=== PATIENT | male | born 1955 | race Two or more races ===

== ENCOUNTER 2016-10-20 08:14 | Observation (INO) | payer OTHER ==
[~2016-10-20] VITALS: Ht 177.8 cm; Wt 80.2 kg
[~2016-10-20 08:14] MED LIST: /SODI15SS PO; ALLO100T PO; B COCAP5 PO; CENTCHW3 PO; FURO20TA2 PO; LACT10SO15 PO; LACT20EL PO; MILK500C2 PO; NADO20TA2 PO; NEXI40GR PO; SPIR50TA2 PO
[2016-10-20] MEDS ORDERED: MYCO1TAB PO (08:31)
[2016-10-20] MEDS ORDERED: CALC1TAB30 PO (08:31)
[2016-10-20] MEDS ORDERED: ESCI10TA2 PO (08:31)
[2016-10-20] MEDS ORDERED: LOSA25TA8 PO (08:31)
[2016-10-20] MEDS ORDERED: AMLO5TAB2 PO (08:31)
[2016-10-20] MEDS ORDERED: [UNRECOGNIZED DRUG - CODE] PO (08:31)
[2016-10-20] MEDS ORDERED: PRAV20TA2 PO (08:31)
[2016-10-20] MEDS ORDERED: [UNRECOGNIZED DRUG - CODE] PO (08:31)
[2016-10-20] MEDS ORDERED: FERR325T3 PO (08:31)
[2016-10-20 10:24] LABS: BASO % 0.7 % (0.0-1.0); EOS % 0.6 % (0.0-3.0); LARGE UNSTAINED CELL # 0.1 K/mm3 (0.0-0.4); LARGE UNSTAINED CELL % 3.5 % (0.0-4.0); LYMPH # 0.5 K/mm3 (1.5-4.5); MEAN CORPUSCULAR HEMOGLOBIN 27.1 pg (27.0-33.0); MEAN CORPUSCULAR HGB CONC 34.9 g/dl (32.0-36.5); MEAN CORPUSCULAR VOLUME 77.6 fl (80.0-96.0); MONO # 0.5 K/mm3 (0.0-0.8); MONO % 11.8 % (0.0-5.0); NEUTROPHILS % 74.4 % (36.0-66.0); RED CELL DISTRIBUTION WIDTH 15.1 % (11.5-14.5)
[2016-10-20 10:28] LABS: INR 1.07
[2016-10-20 10:39] LABS: ALBUMIN 2.7 GM/DL (3.2-5.2); ALBUMIN/GLOBULIN RATIO 0.82 (1.00-1.93); ALKALINE PHOSPHATASE 62 U/L (45-117); ALT/SGPT 15 U/L (12-78); ANION GAP 7 MEQ/L (8-16); AST/SGOT 13 U/L (15-37); BILIRUBIN,DIRECT 0.1 MG/DL (0.0-0.2); BILIRUBIN,TOTAL 0.6 MG/DL (0.2-1.0); BLOOD UREA NITROGEN 30 MG/DL (7-18); CALCIUM LEVEL 8.1 MG/DL (8.8-10.2); CARBON DIOXIDE LEVEL 26 MEQ/L (21-32); CHLORIDE LEVEL 103 MEQ/L (98-107); CREATININE FOR GFR 1.76 MG/DL (0.70-1.30); GLOMERULAR FILTRATION RATE 42.3 (>49); GLUCOSE, FASTING 129 MG/DL (80-110); POTASSIUM SERUM 4.1 MEQ/L (3.5-5.1); SODIUM LEVEL 136 MEQ/L (136-145)
[2016-10-20] MEDS: NS 1,000 ML IV SCH ×2 (10:39→16:34)
[2016-10-20 11:05] LABS: PLATELET COUNT, AUTOMATED 96 k/mm3 (150-450)
--- NOTE | 2016-10-20 11:50 | REP ---
Clinical: Chest pain. Comparison: 01/24/2013. Findings: Elevation and blunting to the right diaphragmatic surface and costophrenic angle suggest small pleural effusion. Correlation is recommended. Remainder of the aerated lung michael are clear. No pneumothorax. Mediastinum and cardiac silhouette normal. Skeletal structures stable. Possible old infarction involving the proximal humerus. Impression: Possible right lower lobe atelectasis and small effusion. Signed by Kan Muro MD 10/20/2016 11:42 A
[2016-10-20] MEDS ORDERED: CIPROFLOXACIN 500 MG TAB PO ONE (15:00)
[2016-10-20] MEDS ORDERED: CALCTAB68 PO (15:01)
--- NOTE | 2016-10-20 16:29 | HPEPDOC ---
Medical History and Physical Date of Admission Oct 20, 2016 at 15:31 History and Physical Primary care provider: Dr. Esquivel in [place], [place] Date of Admission: 10/20/2016 Attending: Dr. Yuridia Linn CHIEF COMPLAINT: Intractable diarrhea HISTORY OF PRESENT ILLNESS: Mr. Costa is a 61-year-old male who presented to the emergency department with symptoms of watery diarrhea for 6 days duration, and profound fatigue. He believes that he may have had a subjective fever a few days ago, but denies chills or night sweats. It is important to note that he is status post liver transplant and is taking Evorolimus and mycophenolate, therefore he is immunosuppressed. The patient states that his symptoms began approximately . He believes that perhaps it occurred after he had done some work on a septic tank, he does not think that he had any contact with fecal material however. ALLERGIES: No known drug allergies PAST MEDICAL HISTORY: 1. Alcoholic liver cirrhosis, status post liver transplant in 2013, now on immunosuppressive agents 2. History of ascites and esophageal varices, however he has not had issues with either of these since his transplant 3. Gout, without recurrence for many years 4. Hypertension 5. Chronic anemia, also on iron supplementation PAST SURGICAL HISTORY: 1. Umbilical hernia repair 2. Liver transplant 2013 SOCIAL HISTORY: He has been sober since 2013. 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 He denies smoking or use of illicit drugs. He currently lives in [place], is only in [place] visiting FAMILY HISTORY: His father at the age of 86, he had prostate cancer, dementia, and Parkinson's disease. Mother has hypertension. Sr. had breast cancer REVIEW OF SYSTEMS: Constitutional: Patient admits to mild subjective fever a few days ago, denies chills, night sweats, recent weight gain/loss. He states that he is also been suffering from profound fatigue for the last 6 days. HEENT: Patient denies blurred or double vision, transient visual disturbances, postnasal drip, epistaxis, sore throat, difficulty chewing or swallowing food. He does however admit to a slightly decreased appetite, and he is not drinking as much as he did previously Cardiovascular: Patient denies chest discomfort/pain, palpitations, exertional dyspnea, orthopnea, edema of the extremities, claudication. Respiratory: Patient denies dyspnea, wheezing, cough, hemoptysis, sputum production. Gastrointestinal: He admits to intractable diarrhea, and has to go approximately every 1-1.5 hours for the past 6 days. Otherwise, he denies any nausea, vomiting, abdominal pain, constipation. PHYSICAL EXAMINATION: Vitals: Temperature 98.5, pulse 68 regular, respirations 18, blood pressure 127/ 84, pulse oximetry is 100% on room air General: Awake, alert, oriented 3. He is in no acute distress. He is an excellent historian. HEENT: Head normocephalic atraumatic, pupils equally reactive to light, buccal mucosa is somewhat dry with no lesions in the oropharynx. Hearing is grossly intact to conversation. Respiratory: Clear to auscultation bilaterally with no wheezes, rales, or rhonchi. Cardiovascular: Regular rate and rhythm, with no rubs, gallops, or murmur. Abdomen: Soft, nontender, obese, nondistended, no hepatosplenomegaly appreciated. Bowel sounds present. Extremities: 2+ pulses in the radial and dorsalis pedis bilaterally. No evidence of clubbing or cyanosis. Skin: Decreased turgor ASSESSMENT: 1. Intractable diarrhea secondary to Campylobacter infection in immunocompromised patient 2. History of liver transplant 3. Chronic kidney disease stage III, with a baseline creatinine of approximately 1.6-1.8 4. Dehydration 5. Hypertension 6. Chronic Anemia, likely anemia of chronic disease, although he is also on iron supplementation, therefore suspect that he also has decreased iron stores 7. DVT prophylaxis PLAN: Will admit the patient for observation. Will rehydrate with normal saline. Campylobacter has been confirmed with the use of a GI panel, therefore we will treat him with ciprofloxacin renally dosed. He did bring in records from home which indicates a BUN 29, creatinine 1.74 on 08/16/2016 and BUN 22, creatinine 1.83 on 03/20/2016, therefore he has chronic kidney disease. Otherwise, we'll continue the remainder of his home regimen for his chronic issues. My preceptor for this patient encounter was physically present in the building during the encounter and was fully available. As needed, all aspects of the patient interview, examination, medical decision making process, and medical care plan development were reviewed and approved by the preceptor. Preceptor is aware and concurs with the plan as stated in the body of this note and will attest to such by his/her cosignature. I have seen and examined the patient, and discussed the case with the resident. I agree with the following assessment mentioned above. Vital Signs Vital Signs Date Time Temp Pulse Resp B/P (MAP) Pulse Ox O2 Delivery O2 Flow Rate FiO2 10/20/16 14:14 68 18 100 Room Air 10/20/16 14:07 127/84 (98) 10/20/16 10:59 98.5 Laboratory Data Labs 24H Laboratory Tests 2 10/20/16 10:06: White Blood Count 4.0, Red Blood Count 3.83L, Hemoglobin 10.4L, Hematocrit 29.8L , Mean Corpuscular Volume 77.6L, Mean Corpuscular Hemoglobin 27.1, Mean Corpuscular Hemoglobin Concent 34.9, Red Cell Distribution Width 15.1H, Platelet Count 96L, Neutrophils (%) (Auto) 74.4H, Lymphocytes (%) (Auto) 9.0L, Monocytes (%) (Auto) 11.8H, Eosinophils (%) (Auto) 0.6, Basophils (%) (Auto) 0.7 , Neutrophils # (Auto) 3.0, Lymphocytes # (Auto) 0.5L, Monocytes # (Auto) 0.5, Eosinophils # (Auto) 0.0, Basophils # (Auto) 0.0, Large Unclassified Cells % 3.5 , Large Unclassified Cells # 0.1, Prothrombin Time 14.0, Prothromb Time International Ratio 1.07, Activated Partial Thromboplast Time 30.4, Anion Gap 7L , Glomerular Filtration Rate 42.3L, Calcium Level 8.1L, Aspartate Amino Transf ( AST/SGOT) 13L, Alanine Aminotransferase (ALT/SGPT) 15, Alkaline Phosphatase 62, Total Bilirubin 0.6, Direct Bilirubin 0.1, Total Creatine Kinase 37L, Creatine Kinase MB 1.0, Creatine Kinase MB Relative Index 2.70, Troponin I < 0.02, Total Protein 6.0L, Albumin 2.7L, Albumin/Globulin Ratio 0.82L, Lipase 226, Thyroid Stimulating Hormone (TSH) 0.939 10/20/16 10:13: Ammonia 28 10/20/16 10:14: Lactic Acid Level 0.8 CBC/BMP Laboratory Tests 10/20/16 10:06 Red Blood Count 3.83 L, Mean Corpuscular Volume 77.6 L, Mean Corpuscular Hemoglobin 27.1, Mean Corpuscular Hemoglobin Concent 34.9, Red Cell Distribution Width 15.1 H, Neutrophils (%) (Auto) 74.4 H, Lymphocytes (%) (Auto ) 9.0 L, Monocytes (%) (Auto) 11.8 H, Eosinophils (%) (Auto) 0.6, Basophils (%) (Auto) 0.7, Neutrophils # (Auto) 3.0, Lymphocytes # (Auto) 0.5 L, Monocytes # ( Auto) 0.5, Eosinophils # (Auto) 0.0, Basophils # (Auto) 0.0 Microbiology Microbiology 10/20/16 Blood Culture, Received Pending 10/20/16 Blood Culture, Received Pending 10/20/16 Gastrointestinal Tract Panel (PCR) - Final, Complete Campylobacter Home Medications Scheduled (Mycophenolic Acid Dr) 180 Mg Tab, 180 MG PO BID Amlodipine Besylate (Amlodipine Besylate) 5 Mg Tab, 5 MG PO DAILY Calcium/Vitamin D (Calcium 600 + D 600-400 mg-Unit) 1 Tab Tab, 1 TAB PO BID Escitalopram Oxalate (Escitalopram Oxalate) 10 Mg Tab, 10 MG PO QHS Everolimus (Zortress) 0.75 Mg Tab, 2.75 MG PO BID Ferrous Sulfate (Ferrous Sulfate) 325 Mg Tab, 325 MG PO DAILY Losartan Potassium (Losartan Potassium) 25 Mg Tab, 25 MG PO QHS Pravastatin Sodium (Pravastatin Sodium) 20 Mg Tab, 20 MG PO QHS Allergies Coded Allergies: No Known Allergies (Unverified , 01/20/13) NAHED MEDINA DO Oct 20, 2016 16:28 NEHAL LINN MD Oct 21, 2016 12:20
[2016-10-20] MEDS: CIPROFLOXACIN 400 MG in APPROPRIATE DILUENT 1 EA IV SCH (16:34)
[2016-10-20] MEDS: HEPARIN SOD (PORCINE) 5000 UNITS/ML VIAL SC SCH ×2 (16:38→22:33)
[2016-10-20 17:30] VITALS: BP 131/90
[2016-10-20 20:45] VITALS: BP 128/75
--- NOTE | 2016-10-20 20:56 | ECGEPIP ---
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
[2016-10-20] MEDS ORDERED: ESCITALOPRAM OXALATE 10 MG TAB (LEXAPRO) PO SCH (21:00)
[2016-10-20] MEDS ORDERED: LOSARTAN 25 MG TAB PO SCH (21:00)
[2016-10-20] MEDS: MYCOPHENOLIC ACID 180 MG PO SCH (21:00)
[2016-10-20] MEDS: EVEROLIMUS 0.75 MG PO SCH (21:00)
[2016-10-20] MEDS: CALCIUM/VITAMIN D 500 MG TAB PO SCH (21:00)
[2016-10-20] MEDS ORDERED: PRAVASTATIN 20 MG TAB PO SCH (21:00)
--- NOTE | 2016-10-20 22:11 | IPNPDOC ---
Subjective Date Seen The patient was seen on 10/20/16. Subjective Chief Complaint/HPI The patient is a 61-year-old male admitted with a reason for visit of Campylobacter Diarrhea. Assessment /Plan Plan/VTE VTE Prophylaxis Ordered?: Yes Plan CALLED AT 2200 BY NURSE- PT HAD TAKEN ALL OF HIS OWN HOME MEDS HE WAS APPARENTLY TOLD IN ED TO TAKE HIS OWN HOME MEDS. NURSE CONFIRMED PTS HOME MEDS THAT HE TOOK AND WHAT WAS SCHEDULED FOR PT IN HOUSE, DOSAGES AND MEDICATIONS MATCHED. MD/DO AWARE. PTS HOME MEDS ARE NOW IN PHARMACY. IN ADDITION PTS ZORTRESS IS ONLY ON FORMULARY FOR .70 MG, SUCH HE WILL RECEIVE 2.625 MG BID, INSTEAD OF HIS 2.7 MG BID.- CK VS, I&O, 24H, Fishbone Vital Signs/I&O Vital Signs Date Time Temp Pulse Resp B/P (MAP) Pulse Ox O2 Delivery O2 Flow Rate FiO2 10/20/16 17:30 98.4 80 18 131/90 (104) 100 Room Air Laboratory Data 24H LABS Laboratory Tests 2 10/20/16 10:06: White Blood Count 4.0, Red Blood Count 3.83L, Hemoglobin 10.4L, Hematocrit 29.8L , Mean Corpuscular Volume 77.6L, Mean Corpuscular Hemoglobin 27.1, Mean Corpuscular Hemoglobin Concent 34.9, Red Cell Distribution Width 15.1H, Platelet Count 96L, Neutrophils (%) (Auto) 74.4H, Lymphocytes (%) (Auto) 9.0L, Monocytes (%) (Auto) 11.8H, Eosinophils (%) (Auto) 0.6, Basophils (%) (Auto) 0.7 , Neutrophils # (Auto) 3.0, Lymphocytes # (Auto) 0.5L, Monocytes # (Auto) 0.5, Eosinophils # (Auto) 0.0, Basophils # (Auto) 0.0, Large Unclassified Cells % 3.5 , Large Unclassified Cells # 0.1, Prothrombin Time 14.0, Prothromb Time International Ratio 1.07, Activated Partial Thromboplast Time 30.4, Anion Gap 7L , Glomerular Filtration Rate 42.3L, Calcium Level 8.1L, Aspartate Amino Transf ( AST/SGOT) 13L, Alanine Aminotransferase (ALT/SGPT) 15, Alkaline Phosphatase 62, Total Bilirubin 0.6, Direct Bilirubin 0.1, Total Creatine Kinase 37L, Creatine Kinase MB 1.0, Creatine Kinase MB Relative Index 2.70, Troponin I < 0.02, Total Protein 6.0L, Albumin 2.7L, Albumin/Globulin Ratio 0.82L, Lipase 226, Thyroid Stimulating Hormone (TSH) 0.939 10/20/16 10:13: Ammonia 28 10/20/16 10:14: Lactic Acid Level 0.8 CBC/BMP Laboratory Tests 10/20/16 10:06 Red Blood Count 3.83 L, Mean Corpuscular Volume 77.6 L, Mean Corpuscular Hemoglobin 27.1, Mean Corpuscular Hemoglobin Concent 34.9, Red Cell Distribution Width 15.1 H, Neutrophils (%) (Auto) 74.4 H, Lymphocytes (%) (Auto ) 9.0 L, Monocytes (%) (Auto) 11.8 H, Eosinophils (%) (Auto) 0.6, Basophils (%) (Auto) 0.7, Neutrophils # (Auto) 3.0, Lymphocytes # (Auto) 0.5 L, Monocytes # ( Auto) 0.5, Eosinophils # (Auto) 0.0, Basophils # (Auto) 0.0 Microbiology Microbiology 10/20/16 Blood Culture, Received Pending 10/20/16 Blood Culture, Received Pending 10/20/16 Gastrointestinal Tract Panel (PCR) - Final, Complete Campylobacter JANET SPANGLER DO Oct 20, 2016 22:11
[2016-10-21] MEDS: NS 1,000 ML IV SCH (01:44)
[2016-10-21] MEDS ORDERED: CIPROFLOXACIN 400 MG in APPROPRIATE DILUENT 1 EA IV SCH (04:00)
[2016-10-21] MEDS: CIPROFLOXACIN 400 MG in APPROPRIATE DILUENT 1 EA IV SCH ×2 (04:11→15:47)
[2016-10-21] MEDS: HEPARIN SOD (PORCINE) 5000 UNITS/ML VIAL SC SCH (05:16)
[2016-10-21 06:00] VITALS: BP 117/74
[2016-10-21 08:25] VITALS: BP 117/74
[2016-10-21] MEDS: EVEROLIMUS 0.75 MG PO SCH (08:25)
[2016-10-21] MEDS: MYCOPHENOLIC ACID 180 MG PO SCH (08:25)
[2016-10-21] MEDS: CALCIUM/VITAMIN D 500 MG TAB PO SCH (08:25)
[2016-10-21 08:34] LABS: MEAN CORPUSCULAR HEMOGLOBIN 27.5 pg (27.0-33.0); MEAN CORPUSCULAR HGB CONC 35.1 g/dl (32.0-36.5); MEAN CORPUSCULAR VOLUME 78.5 fl (80.0-96.0); RED CELL DISTRIBUTION WIDTH 15.1 % (11.5-14.5); WHITE BLOOD COUNT 2.8 K/mm3 (4.0-10.0)
[2016-10-21 08:56] LABS: CALCIUM LEVEL 7.6 MG/DL (8.8-10.2); CREATININE FOR GFR 1.63 MG/DL (0.70-1.30); GLOMERULAR FILTRATION RATE 46.2 (>49); MAGNESIUM LEVEL 1.9 MG/DL (1.8-2.4); POTASSIUM SERUM 3.9 MEQ/L (3.5-5.1)
[2016-10-21] MEDS ORDERED: amLODIPine 5 MG TAB PO SCH (09:00)
[2016-10-21] MEDS ORDERED: FERROUS SULFATE 325MG TAB PO SCH (09:00)
[2016-10-21 14:00] VITALS: BP 114/70
[2016-10-21] MEDS ORDERED: CIPR-249 PO (14:17)
--- NOTE | 2016-10-21 23:24 | DS.PDOC ---
Discharge Summary General Date of Admission Oct 20, 2016 at 15:31 Date of Discharge 10/21/2016 Discharge Summary PRIMARY CARE PHYSICIAN: Dr. Esquivel in [place], [place] ATTENDING AT TIME OF DISCHARGE: Dr. Finnegan He DISCHARGE DIAGNOS(E)S: 1. Intractable diarrhea secondary to Campylobacter infection in immunocompromised patient 2. History of liver transplant 3. Chronic kidney disease stage III, with a baseline creatinine of approximately 1.6-1.8 4. Dehydration 5. Hypertension 6. Chronic Anemia, likely anemia of chronic disease, although he is also on iron supplementation, therefore suspect that he also has decreased iron stores HPI & HOSPITAL COURSE: Mr. Costa is a 61-year-old male who presented to the emergency department with watery diarrhea 6 days duration as well as profound fatigue. A GI panel was checked upon admission and he was found to be positive for Campylobacter. For the normal population Campylobacter would normally be a self -limiting disease, however this patient is immunosuppressed secondary to the medications he is taking for his liver transplant, and he is quite symptomatic, and therefore we felt that judicious to at least admit him for observation. He was started on ciprofloxacin twice a day, his stools went from about every 1- 1.5 hours to only having 2 bowel movements this morning, and he reports that they're no longer watery, they're still a little loose, but formed. He was found to be slightly dehydrated upon admission, therefore he was given some fluid repletion with normal saline. Also, concerning his fatigue, he was ambulating the hallways approximately every hour, and was feeling significantly better in this respect as well. Given the excellent response that he has shown ciprofloxacin, he will be transitioned over to an oral formulation and allowed to finish up his course at home. He appears stable for discharge. PHYSICAL EXAMINATION ON DISCHARGE: GENERAL: Awake, alert, oriented 3. He is in no acute distress. HEENT: Buccal mucosa is pink and moist with no lesions in the oropharynx. CARDIOVASCULAR EXAMINATION: Regular rate and rhythm, with no rubs, gallops, or murmur. RESPIRATORY EXAMINATION: Clear to auscultation bilaterally with no wheezes, rales, or rhonchi. ABDOMINAL EXAMINATION: Soft, nontender, nondistended. Bowel sounds present. EXTREMITIES: No clubbing or edema noted. 2+ pulses in the radial bilaterally. INTEGUMENT: No rashes or lesions. Skin turgor is improved. DISPOSITION: Home DISCHARGE INSTRUCTIONS: The patient is from [place], but I would recommend that he follow-up with a local provider. Their offices are currently closed as it is a weekend, therefore I recommend that we schedule an appointment with a local provider on Sunday within the following 7-10 days. Diet, as tolerated. Activity, as tolerated. Please be sure to take her antibiotics as prescribed until they're completely finished even if your symptoms are resolved prior to that time. If symptoms return, or if you experience worsening of your symptoms, please call your doctor or return to the emergency department. My preceptor for this patient encounter was physically present in the building during the encounter and was fully available. As needed, all aspects of the patient interview, examination, medical decision making process, and medical care plan development were reviewed and approved by the preceptor. Preceptor is aware and concurs with the plan as stated in the body of this note and will attest to such by his/her cosignature. Vital Signs/I&Os Vital Signs Date Time Temp Pulse Resp B/P (MAP) Pulse Ox O2 Delivery O2 Flow Rate FiO2 10/21/16 14:00 98.2 67 18 114/70 (85) 98 Room Air I&O- Last 24 Hours up to 6 AM 10/21/16 06:00 Intake Total 3000 ml Output Total 625 ml Balance 2375 ml Laboratory Data Labs 24H Laboratory Tests 2 10/21/16 08:23: Anion Gap 6L, Glomerular Filtration Rate 46.2L, Blood Urea Nitrogen 25H, Creatinine 1.63H, Sodium Level 137, Potassium Level 3.9, Chloride Level 107, Carbon Dioxide Level 24, Calcium Level 7.6L, Magnesium Level 1.9 10/21/16 12:02: Bedside Glucose (Misc Panel) 101 CBC/BMP Laboratory Tests 10/21/16 08:23 Red Blood Count 3.22 L, Mean Corpuscular Volume 78.5 L, Mean Corpuscular Hemoglobin 27.5, Mean Corpuscular Hemoglobin Concent 35.1, Red Cell Distribution Width 15.1 H, Calcium Level 7.6 L FSBS Laboratory Tests Test 10/21/16 12:02 Range/Units Bedside Glucose (Misc Panel) 101 80-115 MG/DL Microbiology Microbiology 10/20/16 Blood Culture - Preliminary, Resulted No growth after 24 hours . All specim... 7/7/17 Blood Culture - Preliminary, Resulted No growth after 24 hours . All specim... 10/20/16 Gastrointestinal Tract Panel (PCR) - Final, Complete Campylobacter Discharge Medications Scheduled (Mycophenolic Acid Dr) 180 Mg Tab, 180 MG PO BID, (Reported) Amlodipine Besylate (Amlodipine Besylate) 5 Mg Tab, 5 MG PO DAILY, (Reported) Calcium/Vitamin D (Calcium 600 + D 600-400 mg-Unit) 1 Tab Tab, 1 TAB PO BID, ( Reported) Ciprofloxacin HCl (Cipro) 500 Mg Tab, 500 MG PO BID Escitalopram Oxalate (Escitalopram Oxalate) 10 Mg Tab, 10 MG PO QHS, (Reported) Everolimus (Zortress) 0.75 Mg Tab, 2.75 MG PO BID, (Reported) Ferrous Sulfate (Ferrous Sulfate) 325 Mg Tab, 325 MG PO DAILY, (Reported) Losartan Potassium (Losartan Potassium) 25 Mg Tab, 25 MG PO QHS, (Reported) Pravastatin Sodium (Pravastatin Sodium) 20 Mg Tab, 20 MG PO QHS, (Reported) Allergies Coded Allergies: No Known Allergies (Unverified , 01/20/13) GME ATTESTATION GME ATTESTATION My preceptor for this patient encounter was physically present in the building during the encounter and was fully available. As needed, all aspects of the patient interview, examination, medical decision making process, and medical care plan development were reviewed and approved by the preceptor. Preceptor is aware and concurs with the plan as stated in the body of this note and will attest to such by his/her cosignature. ATTENDING NOTE I have both independently examined this patient as well as reviewed the note. I have discussed in detail with the resident the findings and plan of treatment as documented in the residents note. I will continue to follow the patient and offer further guidance to the patients care as necessary during this hospital stay. NAHED Phillips MD, DO Oct 21, 2016 23:24 MIN LEACH MD Oct 22, 2016 06:58
== END 2016-10-21 16:52 | disposition home or self-care (01) ==
LOC: M ED 08:14 → M ED INP 15:31 → M MSPAV 17:11
PROVIDERS: ADMIT Internal Medicine; ATTEND Hospitalist
DX: A04.5 Campylobacter enteritis (principal); Z94.4 Liver transplant status; N18.3 Chronic kidney disease, stage 3 (moderate); I12.9 Hypertensive chronic kidney disease with stage 1 through stage 4 chronic kidney disease, or unspecified chronic kidney disease; E86.0 Dehydration; D53.9 Nutritional anemia, unspecified; M10.9 Gout, unspecified
CPT/HCPCS: 36415; 71010; 80048; 80076; 82140; 82550; 82553; 83605; 83690; 83735; 84443; 84484; 85025; 85027; 85610; 85730; 87040; 87507; 93005; 93041; 94760; 96372; 96374; 96376; 99285; G0378; J0744

== ENCOUNTER → 2016-11-01 | Outpatient (REF) | payer OTHER ==
[~2016-11-01] MED LIST changes: +AMLO5TAB2 PO; +CALC1TAB30 PO; +CALCTAB68 PO; +CIPR-249 PO; +ESCI10TA2 PO; +FERR325T3 PO; +LOSA25TA8 PO; +MYCO1TAB PO; +PRAV20TA2 PO; +[UNRECOGNIZED DRUG - CODE] PO; +[UNRECOGNIZED DRUG - CODE] PO
[2016-11-01 20:22] LABS: ALBUMIN 3.1 GM/DL (3.2-5.2); ALBUMIN/GLOBULIN RATIO 0.91 (1.00-1.93); BILIRUBIN,TOTAL 0.5 MG/DL (0.2-1.0); CALCIUM LEVEL 8.4 MG/DL (8.8-10.2); CREATININE FOR GFR 1.76 MG/DL (0.70-1.30); GLOMERULAR FILTRATION RATE 42.3 (>49); POTASSIUM SERUM 4.4 MEQ/L (3.5-5.1); TOTAL PROTEIN 6.5 GM/DL (6.4-8.2)
[2016-11-01 20:24] LABS: BASO % 0.7 % (0.0-1.0); EOS # 0.1 K/mm3 (0.0-0.50); EOS % 1.1 % (0.0-3.0); LARGE UNSTAINED CELL # 0.1 K/mm3 (0.0-0.4); LARGE UNSTAINED CELL % 1.1 % (0.0-4.0); LYMPH # 0.7 K/mm3 (1.5-4.5); MEAN CORPUSCULAR HEMOGLOBIN 27.4 pg (27.0-33.0); MEAN CORPUSCULAR HGB CONC 33.3 g/dl (32.0-36.5); MEAN CORPUSCULAR VOLUME 82.2 fl (80.0-96.0); MONO # 0.3 K/mm3 (0.0-0.8); MONO % 5.6 % (0.0-5.0); NEUTROPHILS # 4.3 K/mm3 (1.8-7.7); NEUTROPHILS % 79.5 % (36.0-66.0); PLATELET COUNT, AUTOMATED 148 k/mm3 (150-450); RED CELL DISTRIBUTION WIDTH 15.1 % (11.5-14.5); WHITE BLOOD COUNT 5.4 K/mm3 (4.0-10.0)
== END ==
LOC: M LAB REF 17:11
PROVIDERS: ATTEND Internal Medicine
DX: Z94.4 Liver transplant status (principal)

== ENCOUNTER → 2016-11-13 | Outpatient (REF) | payer OTHER | LOC: M LABWUC 09:14 | PROVIDERS: ATTEND Internal Medicine | DX: Z94.4 Liver transplant status (principal) ==

== ENCOUNTER → 2016-12-04 | Outpatient (REF) | payer OTHER ==
[2016-12-04 18:31] LABS: BASO % 0.6 % (0.0-1.0); EOS # 0.1 K/mm3 (0.0-0.50); EOS % 3.1 % (0.0-3.0); LARGE UNSTAINED CELL % 0.9 % (0.0-4.0); LYMPH # 0.5 K/mm3 (1.5-4.5); LYMPH % 11.3 % (24.0-44.0); MEAN CORPUSCULAR HEMOGLOBIN 27.1 pg (27.0-33.0); MEAN CORPUSCULAR HGB CONC 32.3 g/dl (32.0-36.5); MEAN CORPUSCULAR VOLUME 83.9 fl (80.0-96.0); MONO # 0.3 K/mm3 (0.0-0.8); MONO % 6.5 % (0.0-5.0); NEUTROPHILS # 3.4 K/mm3 (1.8-7.7); NEUTROPHILS % 77.6 % (36.0-66.0); PLATELET COUNT, AUTOMATED 135 k/mm3 (150-450); RED CELL DISTRIBUTION WIDTH 16.3 % (11.5-14.5); WHITE BLOOD COUNT 4.4 K/mm3 (4.0-10.0)
[2016-12-04 20:29] LABS: ALBUMIN 3.4 GM/DL (3.2-5.2); ALBUMIN/GLOBULIN RATIO 0.94 (1.00-1.93); BILIRUBIN,TOTAL 0.4 MG/DL (0.2-1.0); CALCIUM LEVEL 8.1 MG/DL (8.8-10.2); CREATININE FOR GFR 1.59 MG/DL (0.70-1.30); GLOMERULAR FILTRATION RATE 47.5 (>49); POTASSIUM SERUM 4.3 MEQ/L (3.5-5.1)
== END ==
LOC: M LAB REF 07:20
PROVIDERS: ATTEND Internal Medicine
DX: Z94.4 Liver transplant status (principal)

== ENCOUNTER → 2016-12-26 | Outpatient (REF) | payer OTHER ==
[2016-12-26 19:32] LABS: ALBUMIN 3.9 GM/DL (3.2-5.2); ALBUMIN/GLOBULIN RATIO 1.08 (1.00-1.93); BILIRUBIN,TOTAL 0.7 MG/DL (0.2-1.0); CALCIUM LEVEL 9.2 MG/DL (8.8-10.2); CREATININE FOR GFR 1.77 MG/DL (0.70-1.30); POTASSIUM SERUM 4.5 MEQ/L (3.5-5.1); TOTAL PROTEIN 7.5 GM/DL (6.4-8.2)
[2016-12-26 20:04] LABS: BASO % 0.9 % (0.0-1.0); EOS # 0.1 K/mm3 (0.0-0.50); EOS % 2.1 % (0.0-3.0); LARGE UNSTAINED CELL # 0.1 K/mm3 (0.0-0.4); LARGE UNSTAINED CELL % 1.5 % (0.0-4.0); LYMPH # 0.6 K/mm3 (1.5-4.5); LYMPH % 12.7 % (24.0-44.0); MEAN CORPUSCULAR HEMOGLOBIN 26.8 pg (27.0-33.0); MEAN CORPUSCULAR VOLUME 83.8 fl (80.0-96.0); MONO # 0.4 K/mm3 (0.0-0.8); MONO % 9.4 % (0.0-5.0); NEUTROPHILS # 3.4 K/mm3 (1.8-7.7); NEUTROPHILS % 73.3 % (36.0-66.0); PLATELET COUNT, AUTOMATED 131 k/mm3 (150-450); RED CELL DISTRIBUTION WIDTH 15.9 % (11.5-14.5); WHITE BLOOD COUNT 4.6 K/mm3 (4.0-10.0)
== END ==
LOC: M LAB REF 07:00
PROVIDERS: ATTEND Internal Medicine
DX: Z94.4 Liver transplant status (principal)

== ENCOUNTER 2021-10-15 22:43 | Inpatient (IN) | payer OTHER ==
[~2021-10-15] VITALS: Ht 177.8 cm; Wt 95.3 kg
[~2021-10-15 22:43] MED LIST changes: -/SODI15SS PO; +AMLO1TAB24 PO; -AMLO5TAB2 PO; +ESCI10TA16 PO; -ESCI10TA2 PO; +LACT15SO PO; -LACT20EL PO; +LOSA25TA13 PO; -LOSA25TA8 PO; +SPS15SUS2 PO
[2021-10-15 23:17] LABS: BASO # 0.1 10^3/uL (0.0-0.2); BASO % 0.5 % (0.0-1.0); EOS # 0.2 10^3/uL (0.0-0.5); EOS % 1.7 % (0.0-3.0); HEMATOCRIT 36.1 % (42.0-52.0); HEMOGLOBIN 11.6 g/dl (13.5-17.5); LYMPH # 1.3 10^3/uL (1.5-5.0); LYMPH % 12.8 % (24.0-44.0); MEAN CORPUSCULAR HGB CONC 32.1 g/dl (32.0-36.5); MEAN CORPUSCULAR VOLUME 90.3 fl (80.0-96.0); MONO # 0.9 10^3/uL (0.0-0.8); MONO % 9.3 % (2.0-8.0); NEUTROPHILS # 7.4 10^3/uL (1.5-8.5); NEUTROPHILS % 75.1 % (36.0-66.0); PLATELET COUNT, AUTOMATED 151 10^3/uL (150-450); WHITE BLOOD COUNT 9.8 10^3/uL (4.0-10.0)
[2021-10-16 00:04] LABS: CK-MB VALUE MASS 1.4 NG/ML (<3.6); MB/CK RELATIVE INDEX 1.19 (< OR =4)
[2021-10-16 00:10] LABS: ALBUMIN 3.4 GM/DL (3.2-5.2); BILIRUBIN,DIRECT 0.1 MG/DL (0.0-0.2); BILIRUBIN,TOTAL 0.9 MG/DL (0.2-1.0); CALCIUM LEVEL 8.5 MG/DL (8.8-10.2); CREATININE FOR GFR 2.05 MG/DL (0.70-1.30); GLOMERULAR FILTRATION RATE 34.9 (>49); POTASSIUM SERUM 4.5 MEQ/L (3.5-5.1); TOTAL PROTEIN 7.1 GM/DL (6.4-8.2)
[2021-10-16 00:20] LABS: ABG BASE EXCESS 0.7 (-2.0-2.0); ABG HCO3 24.4 MEQ/L (22.0-26.0); ABG O2 SATURATION 96.4 % (95.0-99.0); ABG PARTIAL PRESSURE CO2 35.6 mmHg (35.0-45.0); ABG PARTIAL PRESSURE O2 85.8 mmHg (75.0-100.0); ABG STANDARD HCO3 25.1 MEQ/L (22.0-26.0); ABG TOTAL CO2 25.4 MEQ/L (23.0-31.0); ABG pH (ARTERIAL) 7.453 UNITS (7.350-7.450)
[2021-10-16 01:44] LABS: CK-MB VALUE MASS 1.1 NG/ML (<3.6); MB/CK RELATIVE INDEX 1.67 (< OR =4)
[2021-10-16] MEDS ORDERED: FUROSEMIDE 40MG/4ML VIAL (J1940) IV ONE (01:50)
[2021-10-16] MEDS ORDERED: ASPIRIN 81 MG CHEW TABLET PO ONE (02:20)
[2021-10-16] MEDS ORDERED: ACETAMINOPHEN TAB 650MG DOSE (2X325MG) PO PRN ×2 (02:45→06:00)
[2021-10-16] MEDS ORDERED: AMLO1TAB25 PO (02:52)
[2021-10-16] MEDS ORDERED: GLIM1TAB4 PO (02:52)
[2021-10-16] MEDS ORDERED: ROSU40TA4 PO (02:52)
[2021-10-16] MEDS ORDERED: LOSA100T45 PO (02:52)
[2021-10-16] MEDS ORDERED: LEXA1TAB2 PO (02:52)
[2021-10-16] MEDS ORDERED: HOME MED LIST COMPLETE! XX SCH (02:55)
[2021-10-16] MEDS ORDERED: GLUCAGON INJ 1MG VIAL SC PRN (03:00)
[2021-10-16] MEDS ORDERED: DEXTROSE 50% 50 ML SYRINGE IV PRN (03:00)
[2021-10-16] MEDS ORDERED: GLUCOSE 4GM CHEW TABLET PO PRN (03:00)
[2021-10-16 04:25] VITALS: BP 128/86
[2021-10-16] MEDS ORDERED: carisoprodoL 350 MG TAB PO PRN (06:00)
[2021-10-16 06:14] LABS: BASO # 0.1 10^3/uL (0.0-0.2); BASO % 0.8 % (0.0-1.0); EOS # 0.1 10^3/uL (0.0-0.5); EOS % 1.5 % (0.0-3.0); HEMATOCRIT 33.5 % (42.0-52.0); HEMOGLOBIN 10.8 g/dl (13.5-17.5); LYMPH # 0.8 10^3/uL (1.5-5.0); LYMPH % 12.6 % (24.0-44.0); MEAN CORPUSCULAR HEMOGLOBIN 28.6 pg (27.0-33.0); MEAN CORPUSCULAR HGB CONC 32.2 g/dl (32.0-36.5); MEAN CORPUSCULAR VOLUME 88.6 fl (80.0-96.0); MONO # 0.8 10^3/uL (0.0-0.8); MONO % 12.6 % (2.0-8.0); NEUTROPHILS # 4.8 10^3/uL (1.5-8.5); PLATELET COUNT, AUTOMATED 143 10^3/uL (150-450); RED BLOOD COUNT 3.78 10^6/uL (4.30-6.10); WHITE BLOOD COUNT 6.7 10^3/uL (4.0-10.0)
[2021-10-16] MEDS: HEPARIN SOD (PORCINE) 5000UNITS/ML 1ML VIAL/SYRINGE SC SCH ×3 (06:16→20:37)
[2021-10-16] MEDS: LIDOCAINE 5% (LIDODERM) PATCH TD SCH (06:16)
[2021-10-16 06:39] LABS: HEMOGLOBIN A1c 7.1 %
[2021-10-16 06:48] LABS: CALCIUM LEVEL 8.8 MG/DL (8.8-10.2); CHOLESTEROL RISK RATIO 3.235 (<5); CREATININE FOR GFR 1.93 MG/DL (0.70-1.30); GLOMERULAR FILTRATION RATE 37.4 (>49); MAGNESIUM LEVEL 2.1 MG/DL (1.8-2.4); POTASSIUM SERUM 3.6 MEQ/L (3.5-5.1)
[2021-10-16 07:06] LABS: CK-MB VALUE MASS 1.5 NG/ML (<3.6); MB/CK RELATIVE INDEX 2.17 (< OR =4)
[2021-10-16 07:32] VITALS: BP 130/86
[2021-10-16] MEDS: FERROUS SULFATE 325MG TAB PO SCH (08:12)
[2021-10-16] MEDS: FUROSEMIDE 40MG/4ML VIAL (J1940) IV SCH ×3 (08:13→23:59)
[2021-10-16] MEDS: INSULIN LISPRO (NovoLOG) PER UNIT SC SCH ×4 (08:13→20:37)
[2021-10-16 09:39] LABS: CK-MB VALUE MASS 1.5 NG/ML (<3.6); MB/CK RELATIVE INDEX 2.21 (< OR =4)
[2021-10-16 11:49] VITALS: BP 124/81
[2021-10-16 12:23] LABS: CK-MB VALUE MASS 1.5 NG/ML (<3.6); MB/CK RELATIVE INDEX 0.66 (< OR =4)
[2021-10-16] MEDS: EVEROLIMUS 1 MG PO SCH ×2 (15:29→20:33)
[2021-10-16 16:05] VITALS: BP 124/80
[2021-10-16] MEDS: **NOTE PATIENT COMMENT** MISC XX SCH (18:24)
[2021-10-16 20:00] VITALS: BP 131/82
[2021-10-16] MEDS: MYCOPHENOLATE SODIUM 180 MG PO SCH (20:32)
[2021-10-16] MEDS: ROSUVASTATIN 10 MG TAB (CRESTOR) PO SCH (20:34)
[2021-10-16] MEDS: ESCITALOPRAM OXALATE 10 MG TAB (LEXAPRO) PO SCH (20:36)
[2021-10-17] VITALS: BP 147/80
[2021-10-17] MEDS ORDERED: UNRESOLVED PATIENT OWN MED ORDER XX SCH (00:01)
[2021-10-17 04:00] VITALS: BP 124/86
[2021-10-17] MEDS: HEPARIN SOD (PORCINE) 5000UNITS/ML 1ML VIAL/SYRINGE SC SCH ×3 (06:30→21:35)
[2021-10-17 07:53] VITALS: BP 127/84
[2021-10-17 08:08] LABS: BASO % 0.5 % (0.0-1.0); EOS # 0.1 10^3/uL (0.0-0.5); EOS % 1.8 % (0.0-3.0); HEMATOCRIT 37.1 % (42.0-52.0); HEMOGLOBIN 12.1 g/dl (13.5-17.5); LYMPH # 0.9 10^3/uL (1.5-5.0); LYMPH % 14.7 % (24.0-44.0); MEAN CORPUSCULAR HEMOGLOBIN 28.3 pg (27.0-33.0); MEAN CORPUSCULAR HGB CONC 32.6 g/dl (32.0-36.5); MEAN CORPUSCULAR VOLUME 86.9 fl (80.0-96.0); MONO # 0.7 10^3/uL (0.0-0.8); MONO % 10.9 % (2.0-8.0); NEUTROPHILS # 4.3 10^3/uL (1.5-8.5); NEUTROPHILS % 71.6 % (36.0-66.0); PLATELET COUNT, AUTOMATED 122 10^3/uL (150-450); RED BLOOD COUNT 4.27 10^6/uL (4.30-6.10)
[2021-10-17 08:36] LABS: ALBUMIN 3.3 GM/DL (3.2-5.2); CREATININE FOR GFR 1.94 MG/DL (0.70-1.30); GLOMERULAR FILTRATION RATE 37.2 (>49); MAGNESIUM LEVEL 2.2 MG/DL (1.8-2.4); POTASSIUM SERUM 3.6 MEQ/L (3.5-5.1); TOTAL PROTEIN 7.1 GM/DL (6.4-8.2)
[2021-10-17] MEDS: FERROUS SULFATE 325MG TAB PO SCH (09:38)
[2021-10-17] MEDS: INSULIN LISPRO (NovoLOG) PER UNIT SC SCH ×4 (09:38→21:00)
[2021-10-17] MEDS: ASPIRIN 81 MG CHEW TABLET PO SCH (09:38)
[2021-10-17] MEDS: FUROSEMIDE 40MG/4ML VIAL (J1940) IV SCH ×3 (09:38→23:59)
[2021-10-17] MEDS: LIDOCAINE 5% (LIDODERM) PATCH TD SCH (09:39)
[2021-10-17] MEDS: MYCOPHENOLATE SODIUM 180 MG PO SCH ×2 (09:39→21:32)
[2021-10-17] MEDS: EVEROLIMUS 1 MG PO SCH ×2 (09:39→21:33)
[2021-10-17 11:17] VITALS: BP 139/92
[2021-10-17 12:19] LABS: CK-MB VALUE MASS < 1.0 NG/ML (<3.6); CPK CREATINE PHOSPHOKINASE 55 U/L (39-308); MB/CK RELATIVE INDEX 1.82 (< OR =4)
[2021-10-17 14:00] VITALS: BP 132/87
[2021-10-17 18:38] VITALS: BP 140/93
[2021-10-17] MEDS: **NOTE PATIENT COMMENT** MISC XX SCH (21:34)
[2021-10-17] MEDS: ESCITALOPRAM OXALATE 10 MG TAB (LEXAPRO) PO SCH (21:34)
[2021-10-17] MEDS: ROSUVASTATIN 10 MG TAB (CRESTOR) PO SCH (21:34)
[2021-10-18] MEDS ORDERED: MORPHINE 2 MG/ML 1ML VIAL IV ONE (05:15)
[2021-10-18 05:19] VITALS: BP 122/79
[2021-10-18] MEDS: HEPARIN SOD (PORCINE) 5000UNITS/ML 1ML VIAL/SYRINGE SC SCH ×3 (05:53→22:23)
[2021-10-18] MEDS: ASPIRIN 81 MG CHEW TABLET PO SCH (05:53)
[2021-10-18 06:32] LABS: BASO % 0.5 % (0.0-1.0); EOS # 0.2 10^3/uL (0.0-0.5); EOS % 1.9 % (0.0-3.0); HEMOGLOBIN 12.5 g/dl (13.5-17.5); LYMPH # 1.5 10^3/uL (1.5-5.0); LYMPH % 18.8 % (24.0-44.0); MEAN CORPUSCULAR HEMOGLOBIN 27.9 pg (27.0-33.0); MEAN CORPUSCULAR HGB CONC 32.9 g/dl (32.0-36.5); MEAN CORPUSCULAR VOLUME 84.8 fl (80.0-96.0); MONO # 0.9 10^3/uL (0.0-0.8); MONO % 11.6 % (2.0-8.0); NEUTROPHILS # 5.2 10^3/uL (1.5-8.5); NEUTROPHILS % 66.6 % (36.0-66.0); PLATELET COUNT, AUTOMATED 197 10^3/uL (150-450); RED BLOOD COUNT 4.48 10^6/uL (4.30-6.10); WHITE BLOOD COUNT 7.8 10^3/uL (4.0-10.0)
[2021-10-18 07:05] LABS: ALBUMIN 3.5 GM/DL (3.2-5.2); BILIRUBIN,TOTAL 1.1 MG/DL (0.2-1.0); CALCIUM LEVEL 9.1 MG/DL (8.8-10.2); CREATININE FOR GFR 1.98 MG/DL (0.70-1.30); GLOMERULAR FILTRATION RATE 36.3 (>49); MAGNESIUM LEVEL 2.2 MG/DL (1.8-2.4); POTASSIUM SERUM 3.3 MEQ/L (3.5-5.1); TOTAL PROTEIN 7.5 GM/DL (6.4-8.2)
[2021-10-18 07:12] LABS: CK-MB VALUE MASS < 1.0 NG/ML (<3.6); CPK CREATINE PHOSPHOKINASE 43 U/L (39-308); MB/CK RELATIVE INDEX 2.33 (< OR =4)
[2021-10-18] MEDS: INSULIN LISPRO (NovoLOG) PER UNIT SC SCH ×4 (08:18→21:00)
[2021-10-18] MEDS: LIDOCAINE 5% (LIDODERM) PATCH TD SCH (08:19)
[2021-10-18] MEDS: FUROSEMIDE 40MG/4ML VIAL (J1940) IV SCH ×2 (08:19→16:50)
[2021-10-18] MEDS: FERROUS SULFATE 325MG TAB PO SCH (08:19)
[2021-10-18] MEDS: EVEROLIMUS 1 MG PO SCH ×2 (08:19→21:34)
[2021-10-18] MEDS: MYCOPHENOLATE SODIUM 180 MG PO SCH ×2 (08:19→21:34)
[2021-10-18] MEDS ORDERED: POTASSIUM CHLORIDE 10MEQ SR TABLET PO ONE ×2 (09:05→14:00)
[2021-10-18 14:00] VITALS: BP 135/90
[2021-10-18] MEDS: **NOTE PATIENT COMMENT** MISC XX SCH (21:00)
[2021-10-18 22:00] VITALS: BP 134/90
[2021-10-18] MEDS: ROSUVASTATIN 10 MG TAB (CRESTOR) PO SCH (22:23)
[2021-10-18] MEDS: ESCITALOPRAM OXALATE 10 MG TAB (LEXAPRO) PO SCH (22:23)
[2021-10-19] MEDS: FUROSEMIDE 40MG/4ML VIAL (J1940) IV SCH ×2 (01:09→07:59)
[2021-10-19 06:00] VITALS: BP 135/93
[2021-10-19 06:01] LABS: BASO % 0.6 % (0.0-1.0); EOS # 0.1 10^3/uL (0.0-0.5); EOS % 1.5 % (0.0-3.0); HEMATOCRIT 38.4 % (42.0-52.0); HEMOGLOBIN 12.3 g/dl (13.5-17.5); LYMPH # 1.2 10^3/uL (1.5-5.0); LYMPH % 17.9 % (24.0-44.0); MEAN CORPUSCULAR VOLUME 87.3 fl (80.0-96.0); MONO # 0.8 10^3/uL (0.0-0.8); MONO % 11.9 % (2.0-8.0); NEUTROPHILS # 4.6 10^3/uL (1.5-8.5); NEUTROPHILS % 67.5 % (36.0-66.0); PLATELET COUNT, AUTOMATED 159 10^3/uL (150-450); WHITE BLOOD COUNT 6.9 10^3/uL (4.0-10.0)
[2021-10-19 06:25] LABS: ALBUMIN 3.4 GM/DL (3.2-5.2); BILIRUBIN,TOTAL 0.9 MG/DL (0.2-1.0); CALCIUM LEVEL 8.9 MG/DL (8.8-10.2); CREATININE FOR GFR 1.98 MG/DL (0.70-1.30); GLOMERULAR FILTRATION RATE 36.3 (>49); MAGNESIUM LEVEL 2.2 MG/DL (1.8-2.4); POTASSIUM SERUM 3.3 MEQ/L (3.5-5.1); TOTAL PROTEIN 7.2 GM/DL (6.4-8.2)
[2021-10-19] MEDS: HEPARIN SOD (PORCINE) 5000UNITS/ML 1ML VIAL/SYRINGE SC SCH ×3 (06:32→21:20)
[2021-10-19] MEDS: MYCOPHENOLATE SODIUM 180 MG PO SCH ×2 (07:55→21:12)
[2021-10-19] MEDS: FERROUS SULFATE 325MG TAB PO SCH (07:56)
[2021-10-19] MEDS: INSULIN LISPRO (NovoLOG) PER UNIT SC SCH ×4 (07:56→21:00)
[2021-10-19] MEDS: LIDOCAINE 5% (LIDODERM) PATCH TD SCH (07:56)
[2021-10-19] MEDS: ASPIRIN 81 MG CHEW TABLET PO SCH (07:56)
[2021-10-19] MEDS: EVEROLIMUS 1 MG PO SCH ×2 (07:56→21:10)
[2021-10-19] MEDS ORDERED: POTASSIUM CHLORIDE 10MEQ SR TABLET PO SCH (09:00)
[2021-10-19] MEDS: **hydrALAZINE** 10 MG TAB PO SCH ×2 (10:20→21:00)
[2021-10-19] MEDS: CARVedilol 3.125 MG TAB PO SCH ×2 (10:20→21:00)
[2021-10-19] MEDS: ISOSORBIDE MONONITRATE 10MG TABLET PO SCH ×2 (10:22→16:59)
[2021-10-19] MEDS: SPIRONOLACTONE 25 MG TAB PO SCH (12:16)
[2021-10-19 14:00] VITALS: BP 130/89
[2021-10-19] MEDS: FUROSEMIDE 40 MG TAB PO SCH (16:58)
[2021-10-19] MEDS: **NOTE PATIENT COMMENT** MISC XX SCH (21:17)
[2021-10-19] MEDS: ESCITALOPRAM OXALATE 10 MG TAB (LEXAPRO) PO SCH (21:17)
[2021-10-19] MEDS: ROSUVASTATIN 10 MG TAB (CRESTOR) PO SCH (21:17)
[2021-10-19 22:00] VITALS: BP 145/96
[2021-10-20] MEDS: HEPARIN SOD (PORCINE) 5000UNITS/ML 1ML VIAL/SYRINGE SC SCH (05:00)
[2021-10-20 06:00] VITALS: BP 138/93
[2021-10-20] MEDS: ISOSORBIDE MONONITRATE 10MG TABLET PO SCH (06:25)
[2021-10-20 08:23] LABS: HEMATOCRIT 39.1 % (42.0-52.0); HEMOGLOBIN 12.8 g/dl (13.5-17.5); MEAN CORPUSCULAR HEMOGLOBIN 27.7 pg (27.0-33.0); MEAN CORPUSCULAR HGB CONC 32.7 g/dl (32.0-36.5); MEAN CORPUSCULAR VOLUME 84.6 fl (80.0-96.0); PLATELET COUNT, AUTOMATED 150 10^3/uL (150-450); RED BLOOD COUNT 4.62 10^6/uL (4.30-6.10); WHITE BLOOD COUNT 6.3 10^3/uL (4.0-10.0)
[2021-10-20 08:50] LABS: CALCIUM LEVEL 9.6 MG/DL (8.8-10.2); CREATININE FOR GFR 2.03 MG/DL (0.70-1.30); GLOMERULAR FILTRATION RATE 35.3 (>49); MAGNESIUM LEVEL 2.4 MG/DL (1.8-2.4); POTASSIUM SERUM 3.9 MEQ/L (3.5-5.1)
[2021-10-20] MEDS: LIDOCAINE 5% (LIDODERM) PATCH TD SCH ×2 (09:00→09:49)
[2021-10-20] MEDS ORDERED: metOLazone 2.5 MG TAB PO SCH (09:00)
[2021-10-20] MEDS: INSULIN LISPRO (NovoLOG) PER UNIT SC SCH ×2 (09:48→12:18)
[2021-10-20] MEDS: FUROSEMIDE 40 MG TAB PO SCH (09:48)
[2021-10-20] MEDS: ASPIRIN 81 MG CHEW TABLET PO SCH (09:48)
[2021-10-20] MEDS: FERROUS SULFATE 325MG TAB PO SCH (09:48)
[2021-10-20] MEDS: SPIRONOLACTONE 25 MG TAB PO SCH (09:48)
[2021-10-20] MEDS: MYCOPHENOLATE SODIUM 180 MG PO SCH (09:50)
[2021-10-20] MEDS: EVEROLIMUS 1 MG PO SCH (09:50)
[2021-10-20] MEDS: **hydrALAZINE** 10 MG TAB PO SCH (09:50)
[2021-10-20 09:51] VITALS: BP 130/93
[2021-10-20] MEDS: CARVedilol 3.125 MG TAB PO SCH (09:51)
[2021-10-20] MEDS ORDERED: ISOS10TAB PO (12:47)
[2021-10-20] MEDS ORDERED: CARV3.12 PO (12:47)
[2021-10-20] MEDS ORDERED: METO25TA PO (12:47)
[2021-10-20] MEDS ORDERED: ASPI81CH8 PO (12:47)
[2021-10-20] MEDS ORDERED: FURO40TA2 PO (12:47)
[2021-10-20] MEDS ORDERED: ALDA25TA2 PO (12:47)
== END 2021-10-20 14:45 | disposition home health service (06) | DRG 280 ==
LOC: M ED 22:43 → M MSPAV 10-16 02:45 → M ED INP 10-16 02:45 → ENRESERV 10-16 03:51 → M PCU 10-16 04:24 → M MSPAV 10-17 11:10
PROVIDERS: ADMIT Family Medicine; ATTEND General Practice
DX: I13.0 Hypertensive heart and chronic kidney disease with heart failure and stage 1 through stage 4 chronic kidney disease, or unspecified chronic kidney disease (principal); I21.A1 Myocardial infarction type 2; I50.23 Acute on chronic systolic (congestive) heart failure; Z94.4 Liver transplant status; J90 Pleural effusion, not elsewhere classified; N17.9 Acute kidney failure, unspecified; E11.22 Type 2 diabetes mellitus with diabetic chronic kidney disease; K21.9 Gastro-esophageal reflux disease without esophagitis; N18.30 Chronic kidney disease, stage 3 unspecified; E87.6 Hypokalemia; E78.5 Hyperlipidemia, unspecified; D63.1 Anemia in chronic kidney disease; M10.9 Gout, unspecified; Z79.82 Long term (current) use of aspirin; Z79.899 Other long term (current) drug therapy; F41.9 Anxiety disorder, unspecified; F32.A Depression, unspecified

== ENCOUNTER 2021-10-23 21:40 | Emergency (ER) | payer OTHER ==
[~2021-10-23] VITALS: Ht 177.8 cm; Wt 92.1 kg
[~2021-10-23 21:40] MED LIST changes: +ALDA25TA2 PO; +AMLO1TAB25 PO; +ASPI81CH8 PO; +CARV3.12 PO; +FURO40TA2 PO; +GLIM1TAB4 PO; +ISOS10TAB PO; +LEXA1TAB2 PO; +LOSA100T45 PO; +METO25TA PO; +ROSU40TA4 PO
[2021-10-23] MEDS ORDERED: ONDANSETRON 4MG 2ML VIAL IV ONE (22:25)
[2021-10-23] MEDS ORDERED: ASPI-161 PO (23:02)
[2021-10-23 23:06] LABS: BASO # 0.1 10^3/uL (0.0-0.2); BASO % 0.5 % (0.0-1.0); EOS # 0.1 10^3/uL (0.0-0.5); EOS % 0.5 % (0.0-3.0); HEMOGLOBIN 12.4 g/dl (13.5-17.5); LYMPH # 1.7 10^3/uL (1.5-5.0); LYMPH % 18.3 % (24.0-44.0); MEAN CORPUSCULAR HEMOGLOBIN 27.9 pg (27.0-33.0); MEAN CORPUSCULAR HGB CONC 33.5 g/dl (32.0-36.5); MEAN CORPUSCULAR VOLUME 83.3 fl (80.0-96.0); MONO # 1.2 10^3/uL (0.0-0.8); MONO % 13.4 % (2.0-8.0); NEUTROPHILS # 6.1 10^3/uL (1.5-8.5); NEUTROPHILS % 66.3 % (36.0-66.0); PLATELET COUNT, AUTOMATED 208 10^3/uL (150-450); RED BLOOD COUNT 4.44 10^6/uL (4.30-6.10); WHITE BLOOD COUNT 9.2 10^3/uL (4.0-10.0)
[2021-10-23] MEDS ORDERED: METO25TA PO (23:06)
[2021-10-23] MEDS ORDERED: FURO40TA2 PO (23:06)
[2021-10-23] MEDS ORDERED: SPIR-10 PO (23:06)
[2021-10-23] MEDS ORDERED: CARV3.12 PO (23:06)
[2021-10-23] MEDS ORDERED: ISOS1TAB12 PO (23:06)
[2021-10-23] MEDS ORDERED: HOME MED LIST COMPLETE! XX SCH (23:10)
[2021-10-23 23:28] LABS: CK-MB VALUE MASS 1.1 NG/ML (<3.6); MB/CK RELATIVE INDEX 2.56 (< OR =4)
[2021-10-24 00:26] LABS: CK-MB VALUE MASS < 1.0 NG/ML (<3.6); CPK CREATINE PHOSPHOKINASE 47 U/L (39-308); MB/CK RELATIVE INDEX 2.13 (< OR =4)
[2021-10-24 01:46] LABS: CALCIUM LEVEL 9.4 MG/DL (8.8-10.2); CREATININE FOR GFR 2.72 MG/DL (0.70-1.30); GLOMERULAR FILTRATION RATE 25.2 (>49); POTASSIUM SERUM 3.3 MEQ/L (3.5-5.1)
[2021-10-24 02:11] LABS: ALBUMIN 3.9 GM/DL (3.2-5.2); BILIRUBIN,DIRECT 0.2 MG/DL (0.0-0.2); THYROID STIMULATING HORMONE 2.24 uIU/ML (0.358-3.740)
[2021-10-24 02:41] LABS: CK-MB VALUE MASS < 1.0 NG/ML (<3.6); CPK CREATINE PHOSPHOKINASE 51 U/L (39-308); MB/CK RELATIVE INDEX 1.96 (< OR =4)
[2021-10-24] MEDS ORDERED: ONDA4TAB6 PO (03:28)
[2021-10-24] MEDS ORDERED: GLIM1TAB4 PO (03:30)
[2021-10-24 03:45] VITALS: BP 125/78
== END 2021-10-24 04:16 | disposition home or self-care (01) ==
LOC: M ED 21:40
DX: E11.65 Type 2 diabetes mellitus with hyperglycemia (principal); I44.4 Left anterior fascicular block; I10 Essential (primary) hypertension; N18.9 Chronic kidney disease, unspecified; F10.10 Alcohol abuse, uncomplicated; Z79.899 Other long term (current) drug therapy; Z79.4 Long term (current) use of insulin
CPT/HCPCS: 71045; 74176; 80048; 80076; 82550; 82553; 83880; 84443; 84484; 85025; 87040; 87486; 87581; 87633; 87798; 93005; 93041; 94760; 96374; 99285; J2405

== ENCOUNTER 2021-12-20 15:08 | Observation (INO) | payer OTHER ==
[~2021-12-20] VITALS: Ht 177.8 cm; Wt 89.8 kg
[~2021-12-20 15:08] MED LIST changes: +ASPI-161 PO; +ISOS1TAB12 PO; +ONDA4TAB6 PO; +SPIR-10 PO
[2021-12-20 16:23] LABS: BASO % 0.5 % (0.0-1.0); EOS # 0.1 10^3/uL (0.0-0.5); EOS % 1.1 % (0.0-3.0); HEMATOCRIT 31.6 % (42.0-52.0); LYMPH # 1.1 10^3/uL (1.5-5.0); MEAN CORPUSCULAR HEMOGLOBIN 28.1 pg (27.0-33.0); MEAN CORPUSCULAR HGB CONC 31.6 g/dl (32.0-36.5); MEAN CORPUSCULAR VOLUME 88.8 fl (80.0-96.0); MONO # 0.9 10^3/uL (0.0-0.8); NEUTROPHILS # 4.2 10^3/uL (1.5-8.5); PLATELET COUNT, AUTOMATED 163 10^3/uL (150-450); RED BLOOD COUNT 3.56 10^6/uL (4.30-6.10); WHITE BLOOD COUNT 6.4 10^3/uL (4.0-10.0)
[2021-12-20 16:53] LABS: RSV AMPLIFICATION NEGATIVE (NEGATIVE)
[2021-12-20 17:01] LABS: ALBUMIN 3.2 GM/DL (3.2-5.2); BILIRUBIN,DIRECT 0.5 MG/DL (0.0-0.2); BILIRUBIN,TOTAL 1.9 MG/DL (0.2-1.0); CALCIUM LEVEL 9.1 MG/DL (8.8-10.2); CREATININE FOR GFR 2.09 MG/DL (0.70-1.30); GLOMERULAR FILTRATION RATE 34.1 (>49); POTASSIUM SERUM 4.8 MEQ/L (3.5-5.1); TOTAL PROTEIN 6.9 GM/DL (6.4-8.2)
[2021-12-20] MEDS ORDERED: ROSUVASTATIN 10 MG TAB (CRESTOR) PO SCH (21:00)
[2021-12-20] MEDS ORDERED: ENTR1TAB PO (22:04)
[2021-12-20] MEDS ORDERED: AMAR1TAB PO (22:04)
[2021-12-20] MEDS ORDERED: BRIL90TA PO (22:04)
[2021-12-20] MEDS ORDERED: PANT40TA29 PO (22:04)
[2021-12-20] MEDS ORDERED: ONDA4TAB6 PO (22:04)
[2021-12-20] MEDS ORDERED: CARV6.25 PO (22:04)
[2021-12-20] MEDS ORDERED: OYST500T92 PO (22:04)
[2021-12-20] MEDS ORDERED: [UNRECOGNIZED DRUG - CODE] PO (22:04)
[2021-12-20] MEDS ORDERED: ELIQ5TAB PO (22:04)
[2021-12-20] MEDS ORDERED: ACETAMINOPHEN TAB 650MG DOSE (2X325MG) PO PRN (22:50)
[2021-12-20] MEDS: TICAGRELOR 90 MG TABLET (BRILINTA) PO SCH (23:30)
[2021-12-20] MEDS: APIXABAN 5 MG TAB (ELIQUIS) PO SCH (23:30)
[2021-12-21] VITALS (10 sets, daily range): BP systolic 94–107; BP diastolic 53–66
[2021-12-21] MEDS ORDERED: GLUCOSE 4GM CHEW TABLET PO PRN (01:25)
[2021-12-21] MEDS ORDERED: GLUCAGON INJ 1MG VIAL SC PRN (01:25)
[2021-12-21] MEDS ORDERED: DEXTROSE 50% 50 ML SYRINGE IV PRN (01:25)
[2021-12-21] MEDS ORDERED: NON-FORMULARY 1 EA EA PO SCH ×2 (01:35)
[2021-12-21] MEDS: ISOSORBIDE MONONITRATE 10MG TABLET PO SCH ×2 (01:35→08:00)
[2021-12-21] MEDS ORDERED: PILL CUTTER 1 EACH XX PRN (02:25)
[2021-12-21] MEDS: CARVedilol 6.25 MG TAB PO SCH ×2 (02:30→08:24)
[2021-12-21] MEDS: ENTRESTO 24-26MG TABLET (SACUBITRIL/VALSARTAN) PO SCH ×2 (02:54→08:22)
[2021-12-21 05:24] LABS: CALCIUM LEVEL 8.6 MG/DL (8.8-10.2); CREATININE FOR GFR 1.89 MG/DL (0.70-1.30); GLOMERULAR FILTRATION RATE 38.3 (>49); POTASSIUM SERUM 3.6 MEQ/L (3.5-5.1)
[2021-12-21] MEDS ORDERED: INSULIN LISPRO (NovoLOG) PER UNIT SC SCH ×2 (07:30→21:00)
[2021-12-21] MEDS ORDERED: HOME MED LIST COMPLETE! XX SCH (07:40)
[2021-12-21] MEDS: APIXABAN 5 MG TAB (ELIQUIS) PO SCH (08:23)
[2021-12-21] MEDS: TICAGRELOR 90 MG TABLET (BRILINTA) PO SCH (08:23)
[2021-12-21] MEDS ORDERED: PANTOPRAZOLE 40MG TAB (PROTONIX) PO SCH (09:00)
[2021-12-21] MEDS ORDERED: SPIRONOLACTONE 25 MG TAB PO SCH (09:00)
[2021-12-21] MEDS ORDERED: ESCITALOPRAM OXALATE 10 MG TAB (LEXAPRO) PO SCH (09:00)
[2021-12-21] MEDS ORDERED: IPRAINH INH (09:00)
[2021-12-21] MEDS ORDERED: EVEROLIMUS PO SCH (09:00)
[2021-12-21] MEDS ORDERED: FERROUS SULFATE 325MG TAB PO SCH (09:00)
[2021-12-22] MEDS ORDERED: UNRESOLVED PATIENT OWN MED ORDER XX SCH (00:01)
== END 2021-12-21 09:48 | disposition home or self-care (01) ==
LOC: M ED 15:08 → M ED INP 15:09 → ENRESERV 12-21 00:37 → M ICU 12-21 01:10
PROVIDERS: ADMIT Internal Medicine; ATTEND Internal Medicine
DX: R06.02 Shortness of breath (principal); I48.91 Unspecified atrial fibrillation; Z79.01 Long term (current) use of anticoagulants; I25.10 Atherosclerotic heart disease of native coronary artery without angina pectoris; Z98.61 Coronary angioplasty status; Z79.02 Long term (current) use of antithrombotics/antiplatelets; Z79.899 Other long term (current) drug therapy; Z94.4 Liver transplant status; E11.9 Type 2 diabetes mellitus without complications; I50.9 Heart failure, unspecified; Z86.16 Personal history of COVID-19
CPT/HCPCS: 36415; 71045; 80048; 80076; 83605; 83880; 84484; 85025; 85379; 87040; 87631; 93005; 93041; 94760; 99285; G0378

== ENCOUNTER → 2021-12-23 | Outpatient (CLI) | payer OTHER ==
[~2021-12-23] MED LIST changes: +AMAR1TAB PO; +BRIL90TA PO; +CARV6.25 PO; +ELIQ5TAB PO; +ENTR1TAB PO; +IPRAINH INH; +OYST500T92 PO; +PANT40TA29 PO; +[UNRECOGNIZED DRUG - CODE] PO
== END ==
LOC: M CARPUL 14:20
PROVIDERS: ATTEND Family Medicine
DX: R00.2 Palpitations (principal)

== ENCOUNTER → 2022-12-29 | Outpatient (CLI) | payer OTHER ==
[~2022-12-29] MED LIST changes: -LOSA100T45 PO; +LOSA100T46 PO
== END ==
LOC: M CARPUL 10:41
PROVIDERS: ATTEND Internal Medicine Cardiovascular Disease
DX: I50.22 Chronic systolic (congestive) heart failure (principal)

== ENCOUNTER → 2024-12-25 | Outpatient (REF) | payer OTHER ==
[~2024-12-25] MED LIST changes: -ASPI-161 PO; +ASPI-615 PO; -GLIM1TAB4 PO; +GLIM1TAB84 PO; +ISOS10TA69 PO; -ISOS1TAB12 PO; +ONDA-282 PO; -ONDA4TAB6 PO; -PRAV20TA2 PO; +PRAV20TA78 PO; -ROSU40TA4 PO; +ROSU40TA81 PO
[2024-12-25 19:07] LABS: IRON (FE) 56.0 UG/DL (65-175); PERCENT SATURATION 22.6 % (19.7-50.0)
== END ==
LOC: M LAB REF 17:01
PROVIDERS: ATTEND Internal Medicine Nephrology
DX: D50.9 Iron deficiency anemia, unspecified (principal)